=== PATIENT | male | born 1995 | race Caucasian/White ===

== ENCOUNTER 2018-05-05 12:09 | Emergency (ER) | payer OTHER ==
--- NOTE | 2018-05-05 12:45 | ED Physician Documentation ---
History of Present Illness - Stated complaint Stated Complaint: COLD - Chief complaint Chief Complaint: Exposure - History obtained from History obtained from: Patient - History of Present Illness Timing: Last night (He states he was with some new people he had met and was in the car with them. He says they were talking about 1 of their friends need a new heart and he inferred they are talking about cutting his heart out. The patient denies alcohol or use last night. He states he had had some marijuana. He states he got anxious being in the car with the people and jumped out of it with its moving slightly. He then ran into the [place] but the other people did not follow him. It was dark and he was scared and he says he just stayed huddled in the [place] overnight until daylight when he started on his way out of the [place] and back to the road. Someone drive him by picked him up and brought him here for evaluation. He states he is feeling cold. He has some pain in the left hip. He denies headache. He states he has not eaten yet today. He was shivering.) Review of Systems Constitutional: denies: Fever Nose: denies: Rhinorrhea / runny nose, Congestion Throat: denies: Sore throat Cardiac: denies: Chest pain / pressure Respiratory: denies: Cough GI: denies: Abdominal Pain, Vomiting, Diarrhea Neurologic: reports: Confused (he says he got confused after jumping out of car last evening, ran into the [place], and stayed the night there.). denies: Focal weakness, Headache Psychiatric: denies: Depressed, Suicidal, Anxiety PD PAST MEDICAL HISTORY - Past Medical History Past Medical History: No - Past Surgical History Past Surgical History: Yes Ortho: Other - Present Medications Home Medications: Ambulatory Orders Medication Instructions Recorded Confirmed No Known Home Medications 05/05/18 05/05/18 - Allergies Allergies/Adverse Reactions: Allergies Allergy/AdvReac Type Severity Reaction Status Date / Time No Known Drug Allergies Allergy Verified 05/05/18 12:18 - Social History Does the pt smoke?: Yes Smoking Status: Current every day smoker Does the pt drink ETOH?: No Does the pt have substance abuse?: No Substance Use and Type: Marijuana - Immunizations Immunizations are current?: No - POLST Patient has POLST: No PD ED PE NORMAL - Vitals Vital signs reviewed: Yes - General General: Alert and oriented X 3, No acute distress, Well developed/nourished - HEENT HEENT: Ears normal, Pharynx benign, Other (abrason left cheek. Some tenderness left parietal scalp. ) - Neck Neck: Supple, no meningeal sign, No adenopathy - Cardiac Cardiac: RRR, No murmur - Respiratory Respiratory: Clear bilaterally - Abdomen Abdomen: Normal bowel sounds, Soft, Non tender, Non distended - Derm Derm: Normal color, Warm and dry - Extremities Extremities: Other (superficial abrasions on hands and arms. Some tenderness lateral left hip but good ROM of the hip, just hurts on ROM. Knees with abrasions but no bony tenderness nor effusions. Digits without frostbite appearance. ) Results - Vitals Vitals: Oxygen O2 Source Room air - Labs Labs: Laboratory Tests 05/05/18 05/05/18 05/05/18 13:05 13:05 14:13 WBC 17.4 H RBC 4.75 Hgb 14.6 Hct 42.6 MCV 89.7 MCH 30.8 MCHC 34.4 RDW 13.3 Plt Count 339 MPV 6.2 L Neut # (Auto) 14.5 H Lymph # (Auto) 1.3 L [place] # (Auto) 1.6 H Eos # (Auto) 0.0 Baso # (Auto) 0.0 Absolute Nucleated RBC 0.00 Nucleated RBC % 0.0 Sodium 139 Potassium 3.6 Chloride 104 Carbon Dioxide 22 Anion Gap 13.0 BUN 20 Creatinine 0.9 Estimated GFR (MDRD) 107 Glucose 80 Calcium 9.4 Total Bilirubin 1.8 H AST 148 H ALT 56 Alkaline Phosphatase 56 Total Protein 7.8 Albumin 4.4 Globulin 3.4 Albumin/Globulin Ratio 1.3 Lipase 25 Urine Opiates Screen NEGATIVE Ur Oxycodone Screen NEGATIVE Urine Methadone Screen NEGATIVE Ur Propoxyphene Screen NEGATIVE Ur Barbiturates Screen NEGATIVE Ur Tricyclics Screen NEGATIVE Ur Phencyclidine Scrn NEGATIVE Ur Amphetamine Screen NEGATIVE U Methamphetamines Scrn NEGATIVE U Benzodiazepines Scrn NEGATIVE Urine Cocaine Screen NEGATIVE U Cannabinoids Screen POSITIVE H Ethyl Alcohol < 5.0 - Rads (name of study) head CT Radiology: Prelim report reviewed (no acute findings), EMP read contemporaneously, See rad report left hip xray Radiology: Prelim report reviewed, EMP read contemporaneously (no fractures), See rad report PD MEDICAL DECISION MAKING - ED course Complexity details: reviewed results, re-evaluated patient (awake and alert and interacting okay. ), considered differential (I think I smell alcohol on clothing/breath. Otherwise he does have some scratches all over but on head/face too, so consider head CT regarding concussive symptoms. Seems strange to have just run into [place] and stayed the night. Denies psychiatric problems, diabetes, drug use. ), d/w patient Departure - Departure Disposition: 01 Home, Self Care Clinical Impression: Multiple abrasions Exposure to environmental cold Qualifiers: Encounter type: initial encounter Qualified Code(s): T69.9XXA - Effect of reduced temperature, unspecified, initial encounter Condition: Stable Record reviewed to determine appropriate education?: Yes Instructions: ED Hypothermia Tx Comments: Home and rest today. Drink lots of fluids. Stay warm. Discharge Date/Time: 05/05/18 15:35
[2018-05-05] MEDS: SODIUM CHLORIDE 0.9% 1,000 ML IV ONE (13:08)
[2018-05-05 13:16] LABS: BASOPHILS % (AUTO) 0.2 %; HGB - HEMOGLOBIN 14.6 g/dL (14.0-18.0); LYMPHOCYTES # (AUTO) 1.3 10^3/uL (1.5-3.5); LYMPHOCYTES % (AUTO) 7.2 %; MEAN CORPUSCULAR HEMOGLOBIN 30.8 pg (27.0-31.0); MEAN CORPUSCULAR HGB CONC 34.4 g/dL (32.0-36.0); MEAN CORPUSCULAR VOLUME 89.7 fL (80.0-94.0); MEAN PLATELET VOLUME 6.2 fL (7.4-11.4); MONOCYTES # (AUTO) 1.6 10^3/uL (0.0-1.0); MONOCYTES % (AUTO) 9.4 %; NEUTROPHILS # (AUTO) 14.5 10^3/uL (1.5-6.6); NEUTROPHILS % (AUTO) 83.2 %; PLT - PLATELET COUNT 339 10^3/uL (130-450); RED BLOOD COUNT 4.75 10^6/uL (4.70-6.10); RED CELL DISTRIBUTION WIDTH 13.3 % (12.0-15.0); WHITE BLOOD COUNT 17.4 x10^3/uL (4.8-10.8)
[2018-05-05 13:26] LABS: ALBUMIN 4.4 g/dL (3.2-5.5); ALBUMIN/GLOBULIN RATIO 1.3 (1.0-2.2); ALKALINE PHOSPHATASE 56 IU/L (42-121); ALT ALANINE AMINOTRANSFERASE 56 IU/L (10-60); AST ASPARTATE AMINOTRANSFERASE 148 IU/L (10-42); BILIRUBIN,TOTAL 1.8 mg/dL (0.2-1.0); BUN - BLOOD UREA NITROGEN 20 mg/dL (6-20); CALCIUM 9.4 mg/dL (8.5-10.3); CARBON DIOXIDE - CO2 22 mmol/L (21-32); CHLORIDE 104 mmol/L (101-111); CREATININE 0.9 mg/dL (0.6-1.2); GFR - MDRD 107 (>89); GLUCOSE 80 mg/dL (70-100); LIPASE 25 U/L (22-51); SODIUM 139 mmol/L (135-145); TOTAL PROTEIN 7.8 g/dL (6.7-8.2)
--- NOTE | 2018-05-05 14:00 | CT Report ---
Reason: fell out of car, states in [facility] overnight Procedure Date: 05/05/2018 Accession Number: [id number] / [id number] Procedure: CT - Head W/O CPT Code: FULL RESULT: EXAM: CT HEAD EXAM DATE: 05/05/2018 01:46 PM. CLINICAL HISTORY: Fell out of car, [employer] in [facility] overnight. Confusion COMPARISON: None. TECHNIQUE: Multiaxial CT images were obtained from the foramen magnum to the vertex. Reformats: Sagittal and coronal. IV contrast: None. In accordance with CT protocol optimization, one or more of the following dose reduction techniques were utilized for this exam: automated exposure control, adjustment of mA and/or KV based on patient size, or use of iterative reconstructive technique. FINDINGS: Parenchyma: No intraparenchymal hemorrhage. No evidence of mass, midline shift, or CT findings of infarction. Jay-white differentiation is distinct. Extraaxial Spaces: Normal for age. No subdural or epidural collections identified. Ventricles: Normal in size and position. Sinuses and Orbits: Imaged paranasal sinuses, orbits, and mastoids show no significant abnormality. Bones: No evidence of fracture or calvarial defect. Other: None. IMPRESSION: Normal head CT. RADIA
--- NOTE | 2018-05-05 14:00 | XRAY Report ---
Reason: fell out of car Procedure Date: 05/05/2018 Accession Number: [id number] / [id number] Procedure: XR - Hip w/Pelvis 2-3V LT CPT Code: FULL RESULT: EXAM: LEFT HIP RADIOGRAPHY EXAM DATE: 05/05/2018 01:42 PM. CLINICAL HISTORY: Fell out of car. COMPARISON: None. TECHNIQUE: 2 views. FINDINGS: Bones: No acute fracture. Joints: No dislocation. The hip joint space is preserved. Soft Tissues: Unremarkable. IMPRESSION: No acute osseus abnormality. RADIA
[2018-05-05 14:22] LABS: MUDS CUTOFF CONCENTRATIONS CUTOFF CONC BELOW:
[2018-05-05 14:36] LABS: AMPHETAMINE SCREEN,URINE NEGATIVE (NEGATIVE); BENZODIAZEPINES SCREEN, URINE NEGATIVE (NEGATIVE); COCAINE SCREEN URINE NEGATIVE (NEGATIVE); METHADONE SCREEN, URINE NEGATIVE (NEGATIVE); METHAMPHETAMINES SCREEN, URINE NEGATIVE (NEGATIVE); OPIATE SCREEN, URINE NEGATIVE (NEGATIVE); OXYCODONE SCREEN, URINE NEGATIVE (NEGATIVE); PROPOXYPHENE SCREEN, URINE NEGATIVE (NEGATIVE); TRICYCLIC ANTIDEPRESSANT,URINE NEGATIVE (NEGATIVE)
[2018-05-05 15:35] VITALS: BP 118/62
== END 2018-05-05 15:35 | disposition home or self-care (01) ==
LOC: ED 12:09
DX: S00.81XA Abrasion of other part of head, initial encounter (principal); S40.819A Abrasion of unspecified upper arm, initial encounter; S80.219A Abrasion, unspecified knee, initial encounter; Y93.39 Activity, other involving climbing, rappelling and jumping off; Y92.410 Unspecified street and highway as the place of occurrence of the external cause; Y92.810 Car as the place of occurrence of the external cause; T69.8XXA Other specified effects of reduced temperature, initial encounter; X31.XXXA Exposure to excessive natural cold, initial encounter
CPT/HCPCS: 36415; 70450; 80053; 80306; 80320; 83690; 85025; 96360; 99283; 99285